=== PATIENT | female | born 1955 | race Caucasian/White ===

== ENCOUNTER 2019-06-30 00:25 | Inpatient (IN) | payer OTHER ==
[2019-06-30 03:57] VITALS: BMI 35.8
--- NOTE | 2019-06-30 04:25 | PDOC ---
History of Present Illness <Joon Rodriguez - Last Filed: 06/30/19 13:03> <Mago Guzman - Last Filed: 07/03/19 01:08> - General Chief Complaint: Vomiting/Diarrhea Stated Complaint: DIARRHEA Time Seen by Provider: 06/30/19 04:25 Past History <Joon Rodriguez - Last Filed: 06/30/19 13:03> - Past Medical History COPD: No - Suicide/Smoking/Psychosocial Hx Smoking History: Never smoked Hx Alcohol Use: No Drug/Substance Use Hx: No <Mago Guzmna - Last Filed: 07/03/19 01:08> - Past Medical History Allergies/Adverse Reactions: Allergies Allergy/AdvReac Type Severity Reaction Status Date / Time codeine Allergy Verified 06/14/19 10:49 Home Medications: Ambulatory Orders Albuterol Sulfate Inhaler - [Ventolin HFA Inhaler -] 2 inh PO Q4H PRN #1 inh Fluticasone Prop 0.05% Nasal [Flonase -] 1 spray NS DAILY #1 bot 06/14/19 Acetaminophen [Tylenol] 325 mg PO DAILY PRN 06/30/19 Albuterol Sulfate [Proair Respiclick] 90 mcg IH PRN 06/30/19 Salmeterol/Fluticasone [Advair 100Mcg/50Mcg -] 1 inh PO BID 06/30/19 *Physical Exam - Vital Signs Last Vital Signs Temp Pulse Resp BP Pulse Ox 98.3 F 94 H 18 111/71 96 06/30/19 08:44 06/30/19 12:34 06/30/19 12:34 06/30/19 12:34 06/30/19 12:34 <Joon Rodriguez - Last Filed: 06/30/19 13:03> - Vital Signs Last Vital Signs Temp Pulse Resp BP Pulse Ox 100.3 F H 138 H 20 143/83 93 L 06/30/19 01:40 06/30/19 01:40 06/30/19 01:40 06/30/19 01:40 06/30/19 01:40 <Mago Guzman - Last Filed: 07/03/19 01:08> ED Treatment Course - LABORATORY CBC & Chemistry Diagram: 06/30/19 05:21 06/30/19 05:21 - ADDITIONAL ORDERS Additional order review: Laboratory Results 06/30/19 06/30/19 06/30/19 11:35 05:21 05:21 Sodium 139 Potassium 4.3 Chloride 105 Carbon Dioxide 26 Anion Gap 8 BUN 26.4 H Creatinine 1.0 Est GFR (CKD-EPI)AfAm 68.95 Est GFR (CKD-EPI)NonAf 59.49 Random Glucose 186 H Calcium 9.1 Total Bilirubin 0.7 AST 18 ALT 25 Alkaline Phosphatase 138 H Troponin I < 0.02 Total Protein 7.0 Albumin 3.8 Lipase 163 Urine Color Dk yellow Urine Appearance Clear Urine pH 5.0 Ur Specific [place] 1.030 Urine Protein Negative Urine Glucose (UA) Negative Urine Ketones Trace H Urine Blood Negative Urine Nitrite Negative Urine Bilirubin Negative Urine Urobilinogen 0.2 Ur Leukocyte Esterase 3+ H Urine WBC (Auto) 13 Urine RBC (Auto) 3.6 Urine Casts (Auto) 0 U Epithel Cells (Auto) 7.4 Urine Bacteria (Auto) 36.9 06/30/19 05:21 RBC 5.92 H MCV 83.3 MCHC 33.1 RDW 15.6 MPV 7.1 L Neutrophils % 90.5 H Lymphocytes % 4.4 L Monocytes % 3.5 L Eosinophils % 0.8 Basophils % 0.8 - Medications Given in the ED: ED Medications Discontinued Medications Generic Name Dose Route Start Last Admin Trade Name Freq PRN Reason Stop Dose Admin Acetaminophen 1,000 mg 06/30/19 04:45 06/30/19 05:30 Ofirmev Injection - IVPB 06/30/19 04:46 1,000 mg ONCE ONE Administration Sodium Chloride 1,000 mls @ 1,000 mls/hr 06/30/19 04:45 06/30/19 05:30 Normal Saline - IV 06/30/19 05:44 1,000 mls/hr ASDIR STA Administration Famotidine/Sodium Chloride 20 mg in 50 mls @ 100 mls/hr 06/30/19 04:50 05:30 Pepcid 20 Mg Premixed Ivpb - IVPB 06/30/19 05:19 100 mls/hr ONCE ONE Administration Ceftriaxone Sodium 1,000 mg/ 50 mls @ 100 mls/hr 06/30/19 12:15 06/30/19 12: 36 Dextrose IVPB 06/30/19 12:44 100 mls/hr ONCE ONE Administration <Joon Rodriguez - Last Filed: 06/30/19 13:03> - LABORATORY CBC & Chemistry Diagram: 07/01/19 07:00 07/01/19 07:00 <Mago Guzman - Last Filed: 07/03/19 01:08> Medical Decision Making - Medical Decision Making HPI: 64yo F with history of bronchitis (on advair and albuterol) presenting with nausea, vomiting, and diarrhea. Patient states she started having these symptoms around 9pm tonight until shortly after she was in the emergency department. Diarrhea is described as water, light brown, and without blood. Has had recent antibiotic use. No unusual/new foods, sick contacts, or recent travel. Denies abdominal pain or urinary symptoms. Believes she has gastroenteritis. No history of abdominal surgeries. Had a colonoscopy about four years ago which was "normal." Reporting her mouth is dry. Denies fevers, but endorses chills. No chest pain or shortness of breath. PCP: Dr. Live GI: Dr. Man ROS: Constitutional: no fever, +chills HEENT: no throat pain, no dysphagia Cardiovascular: no chest pain, no palpitations Respiratory: no cough, no shortness of breath Gastrointestinal: no abdominal pain, +nausea, +vomiting, +diarrhea Genitourinary: no dysuria, no hematuria Musculoskeletal: no myalgia, no arthralgia Skin: no rash, no itching Neurologic: no headache, no weakness PE: General: Awake, alert, and fully oriented, in no acute distress Head: No signs of trauma Eyes: EOMI, sclera anicteric ENT: Dry mucus membranes Neck: Normal ROM, supple Lungs: Lungs clear, Normal breath sounds Cardio: Regular rhythm, S1 and S2 present Abdomen: Soft, nontender. No guarding, no rebound, no masses. No CVA tenderness Extremities: Normal range of motion, Distal pulses present SKIN: Warm, Dry, normal turgor Neurologic: Cranial nerves II through XII grossly intact. Normal speech ED Course/MDM: DDX including but not limited to gastroenteritis, gastritis, ACS, pancreatitis, intoxication Labs, EKG Fluids Tylenol Pepcid States that she is not currently nauseous. Will hold antiemetics. EKG: rate 132, QTc 456, sinus tachycardia 06/30/19 04:48 CMP Sodium 139 mmol/L (136-145) 06/30/19 05:21 Potassium 4.3 mmol/L (3.5-5.1) 06/30/19 05:21 Chloride 105 mmol/L (98-107) 06/30/19 05:21 Carbon Dioxide 26 mmol/L (21-32) 06/30/19 05:21 Anion Gap 8 MMOL/L (8-16) 06/30/19 05:21 BUN 26.4 mg/dL (7-18) H 06/30/19 05:21 Creatinine 1.0 mg/dL (0.55-1.3) 06/30/19 05:21 Est GFR (CKD-EPI)AfAm 68.95 06/30/19 05:21 Est GFR (CKD-EPI)NonAf 59.49 06/30/19 05:21 Random Glucose 186 mg/dL (74-106) H 06/30/19 05:21 Calcium 9.1 mg/dL (8.5-10.1) 06/30/19 05:21 Total Bilirubin 0.7 mg/dL (0.2-1) 06/30/19 05:21 AST 18 U/L (15-37) 06/30/19 05:21 ALT 25 U/L (13-61) 06/30/19 05:21 Alkaline Phosphatase 138 U/L (45-117) H 06/30/19 05:21 Troponin I < 0.02 ng/ml (0.00-0.05) 06/30/19 05:21 Total Protein 7.0 g/dl (6.4-8.2) 06/30/19 05:21 Albumin 3.8 g/dl (3.4-5.0) 06/30/19 05:21 Lipase 163 U/L (73-393) 06/30/19 05:21 Electrolytes unremarkable BUN elevated, Cr normal Tpn undetectable Normal lipase Pending UA 06/30/19 06:47 Patient signed out to Dr. Rodriguez and day team <Mago Guzman - Last Filed: 07/03/19 01:08> *DC/Admit/Observation/Transfer - Discharge Dispostion Decision to Admit order: Yes <Joon Rodriguez - Last Filed: 06/30/19 13:03> - Discharge Dispostion Decision to Admit order: Yes <Mago Guzman - Last Filed: 07/03/19 01:08> Diagnosis at time of Disposition: Nausea, vomiting and diarrhea - Discharge Dispostion Condition at time of disposition: Guarded
--- NOTE | 2019-06-30 04:34 | PDOC ---
Attending Attestation - Resident Resident Name: aMgo Guzman - ED Attending Attestation I have performed the following: I have examined & evaluated the patient, The case was reviewed & discussed with the resident, I agree w/resident's findings & plan - HPI HPI: 06/30/19 06:12 see resident hpi - Physicial Exam PE: 06/30/19 06:12 agree with resident exam - Medical Decision Making 06/30/19 06:12 64-year-old female with nausea vomiting and diarrhea status post antibiotic regimen for bronchitis Patient's abdomen is completely nontender Plan for IV fluids, analgesics and antacids Labs and urinalysis pending Case will be signed out to oncoming shift for reevaluation
[2019-06-30] MEDS ORDERED: SODIUM CHLORIDE 1,000 ML IV STA (04:45)
[2019-06-30] MEDS ORDERED: ACETAMINOPHEN 1000 MG/100 ML VIAL (NON FORMULARY) IVPB ONE (04:45)
[2019-06-30] MEDS ORDERED: FAMOTIDINE 20 MG/50 ML IVPB 20 MG/50 ML MG IVPB ONE (04:50)
[2019-06-30 06:21] LABS: ALBUMIN 3.8 g/dl (3.4-5.0); BILIRUBIN,TOTAL 0.7 mg/dL (0.2-1); BLOOD UREA NITROGEN 26.4 mg/dL (7-18); CALCIUM 9.1 mg/dL (8.5-10.1); POTASSIUM 4.3 mmol/L (3.5-5.1)
[2019-06-30 06:27] LABS: BASO % 0.8 % (0-2.0); EOS % 0.8 % (0-4.5); HEMATOCRIT 49.3 % (32.4-45.2); HEMOGLOBIN 16.3 GM/dL (10.7-15.3); LYMPH % 4.4 % (8-40); MCH 27.5 pg (25.7-33.7); MCHC 33.1 g/dl (32.0-36.0); MEAN CELL VOLUME 83.3 fl (80-96); MEAN PLT VOLUME 7.1 fl (7.5-11.1); MONO % 3.5 % (3.8-10.2); NEUT % 90.5 % (42.8-82.8); PLATELET COUNT 346 K/MM3 (134-434); RBC 5.92 M/mm3 (3.60-5.2); RDW 15.6 % (11.6-15.6); WHITE BLOOD COUNT 12.4 K/mm3 (4.0-10.0)
--- NOTE | 2019-06-30 08:20 | EKG ---
Test Reason : Blood Pressure : / mmHG Vent. Rate : 132 BPM Atrial Rate : 132 BPM P-R Int : 142 ms QRS Dur : 086 ms QT Int : 308 ms P-R-T Axes : 037 -59 041 degrees QTc Int : 456 ms SINUS TACHYCARDIA WITH FUSION COMPLEXES LOW VOLTAGE QRS LEFT ANTERIOR FASCICULAR BLOCK CANNOT RULE OUT ANTERIOR INFARCT , AGE UNDETERMINED ABNORMAL ECG NO PREVIOUS ECGS AVAILABLE Confirmed by ADELAIDA ROBINS, ENRRIQUE ([id number]) on 06/30/2019 8:19:57 AM Referred By: Confirmed By:ENRRIQUE OSN MD
[2019-06-30 11:43] LABS: EPI CELLS 7.4 /HPF (0-5/HPF); HYALINE CASTS 0 /lpf (0-8); URINE APPEARANCE CLEAR; URINE BACTERIA 36.9 /hpf (NEGATIVE); URINE BILIRUBIN NEGATIVE (NEGATIVE); URINE COLOR DK YELLOW; URINE GLUCOSE (UA) NEGATIVE (NEGATIVE); URINE KETONE TRACE (NEGATIVE); URINE LEUK ESTERASE 3+ (NEGATIVE); URINE NITRITE NEGATIVE (NEGATIVE); URINE PROTEIN NEGATIVE (NEGATIVE); URINE UROBILINOGEN 0.2 mg/dL (0.2-1.0); URINE WBC 13 /hpf (0-5)
[2019-06-30] MEDS ORDERED: CEFTRIAXONE 1,000 MG in DEXTROSE 5%-WATER - 50 ML IVPB ONE (12:15)
[2019-06-30] MEDS ORDERED: CEFTRIAXONE 1 GM/50 ML BAG ONE (12:24)
[2019-06-30 12:48] LABS: URINE RBC 3.6 /hpf (0-4)
--- NOTE | 2019-06-30 13:14 | PDOC ---
*Physical Exam - Vital Signs Last Vital Signs Temp Pulse Resp BP Pulse Ox 98.3 F 94 H 18 111/71 96 06/30/19 08:44 06/30/19 12:34 06/30/19 12:34 06/30/19 12:34 06/30/19 12:34 ED Treatment Course - LABORATORY CBC & Chemistry Diagram: 06/30/19 05:21 06/30/19 05:21 - ADDITIONAL ORDERS Additional order review: Laboratory Results 06/30/19 06/30/19 06/30/19 11:35 05:21 05:21 Sodium 139 Potassium 4.3 Chloride 105 Carbon Dioxide 26 Anion Gap 8 BUN 26.4 H Creatinine 1.0 Est GFR (CKD-EPI)AfAm 68.95 Est GFR (CKD-EPI)NonAf 59.49 Random Glucose 186 H Calcium 9.1 Total Bilirubin 0.7 AST 18 ALT 25 Alkaline Phosphatase 138 H Troponin I < 0.02 Total Protein 7.0 Albumin 3.8 Lipase 163 Urine Color Dk yellow Urine Appearance Clear Urine pH 5.0 Ur Specific [place] 1.030 Urine Protein Negative Urine Glucose (UA) Negative Urine Ketones Trace H Urine Blood Negative Urine Nitrite Negative Urine Bilirubin Negative Urine Urobilinogen 0.2 Ur Leukocyte Esterase 3+ H Urine WBC (Auto) 13 Urine RBC (Auto) 3.6 Urine Casts (Auto) 0 U Epithel Cells (Auto) 7.4 Urine Bacteria (Auto) 36.9 06/30/19 05:21 RBC 5.92 H MCV 83.3 MCHC 33.1 RDW 15.6 MPV 7.1 L Neutrophils % 90.5 H Lymphocytes % 4.4 L Monocytes % 3.5 L Eosinophils % 0.8 Basophils % 0.8 - Medications Given in the ED: ED Medications Discontinued Medications Generic Name Dose Route Start Last Admin Trade Name Freq PRN Reason Stop Dose Admin Acetaminophen 1,000 mg 06/30/19 04:45 06/30/19 05:30 Ofirmev Injection - IVPB 06/30/19 04:46 1,000 mg ONCE ONE Administration Sodium Chloride 1,000 mls @ 1,000 mls/hr 06/30/19 04:45 06/30/19 05:30 Normal Saline - IV 06/30/19 05:44 1,000 mls/hr ASDIR STA Administration Famotidine/Sodium Chloride 20 mg in 50 mls @ 100 mls/hr 06/30/19 04:50 05:30 Pepcid 20 Mg Premixed Ivpb - IVPB 06/30/19 05:19 100 mls/hr ONCE ONE Administration Ceftriaxone Sodium 1,000 mg/ 50 mls @ 100 mls/hr 06/30/19 12:15 06/30/19 12: 36 Dextrose IVPB 06/30/19 12:44 100 mls/hr ONCE ONE Administration Medical Decision Making - Medical Decision Making 06/30/19 13:13 64 F with N+V+D. Febrile in ED and tachycardic to 130s. Labs notable for leukocytosis, UA consistent with UTI. Pt reassessed - continues to feel weak at time of my eval. Will admit for IV hydration and abx. Pt admitted to hospitalist. *DC/Admit/Observation/Transfer Diagnosis at time of Disposition: Nausea, vomiting and diarrhea - Discharge Dispostion Condition at time of disposition: Improved Decision to Admit order: Yes Decision to Admit order Date/Time: Decision to Admit Order Category Date Time Status Decision to Admit to Hospital Routine Admission 06/30/19 13:03 Active - Referrals Referrals: Jonathon Live MD [Primary Care Provider] - - Patient Instructions Printed Discharge Instructions: DI for Vomiting -- Adult, Gastroenteritis Diet Additional Instructions: You came into the emergency department for nausea, vomiting, and diarrhea. We gave you fluids which helped you feel better. Labs did not indicate acute pathology. Follow-up with a primary care provider this week to discuss this ED visit and to further evaluate your symptoms. Your workup is not complete until you do so. Call today and make an appointment. Immediate medical attention is required if you develop: severe abdominal pain, high fevers, persistent nausea, vomiting, or any new or concerning symptoms. If you think you are having an emergency, call for emergency medical services or present to the emergency department right away. - Post Discharge Activity - Attestations Physician Attestion: 06/30/19 13:14 I, Dr. Joon Rodriguez MD, attest that this document has been prepared under my direction and personally reviewed by me in its entirety. I further attest, that it accurately reflects all work, treatment, procedures and medical decision -making performed by me.
--- NOTE | 2019-06-30 15:43 | HP ---
Admitting History and Physical - Admission Chief Complaint: weakness History of Present Illness: Patient is a 64 year old female with a significant past medical history of bronchitis (on advair and albuterol). She had a recent exacerbation of bronchitis two weeks ago and was treated with antibiotics and prednisone taper. She presents to [facility] with symptoms of nausea, vomiting, and diarrhea. Patient states she started having these symptoms yesterday evening and has had six episodes of diarrhea yesterday and two episodes of diarrhea today. Diarrhea is described as water, light brown, and without blood. No unusual/new foods, sick contacts, or recent travel. Denies abdominal pain or urinary symptoms. Believes she has gastroenteritis. No history of abdominal surgeries. Had a colonoscopy about four years ago which was "normal." Reporting her mouth is dry. Denies fevers, but endorses chills. No chest pain or shortness of breath. In the ED she was febrile with tachycardia and elevated wbc 12.4. Her blood and urine cultures have been collected and pending. She has been pancultured. History Source: Patient, Family Member, Medical Record Limitations to Obtaining History: No Limitations - Past Medical History Pulmonary: Yes: Asthma ...: No - Past Surgical History Past Surgical History: Yes: None - Smoking History Smoking history: Never smoked - Alcohol/Substance Use Hx Alcohol Use: No History of Substance Use: reports: None - Social History Usual Living Arrangement: Yes: With Child ADL: Independent History of Recent Travel: No Home Medications - Allergies Allergies/Adverse Reactions: Allergies Allergy/AdvReac Type Severity Reaction Status Date / Time No Known Allergies Allergy Verified 06/30/19 05:10 - Home Medications Home Medications: Ambulatory Orders Acetaminophen [Tylenol] 325 mg PO DAILY PRN 06/30/19 Albuterol Sulfate [Proair Respiclick] 90 mcg IH PRN 06/30/19 Salmeterol/Fluticasone [Advair 100Mcg/50Mcg -] 1 inh PO BID 06/30/19 Family Disease History - Family Disease History Family Disease History: Respiratory: Mother Review of Systems - Review of Systems Constitutional: reports: Chills, Lethargy, Loss of Appetite, Malaise, Weakness Eyes: reports: No Symptoms HENT: reports: No Symptoms Neck: reports: No Symptoms Cardiovascular: reports: No Symptoms Respiratory: reports: Cough Gastrointestinal: reports: No Symptoms Genitourinary: reports: No Symptoms Breasts: reports: No Symptoms Reported Musculoskeletal: reports: No Symptoms Neurological: reports: No Symptoms Endocrine: reports: No Symptoms Hematology/Lymphatic: reports: No Symptoms Psychiatric: reports: Other Physical Examination Vital Signs: Vital Signs Temperature 98.3 F 06/30/19 08:44 Pulse Rate 94 H 06/30/19 12:34 Respiratory Rate 18 06/30/19 12:34 Blood Pressure 111/71 06/30/19 12:34 O2 Sat by Pulse Oximetry (%) 96 06/30/19 12:34 Constitutional: Yes: Well Nourished, No Distress, Calm Eyes: Yes: WNL HENT: Yes: Atraumatic Neck: Yes: Supple Cardiovascular: Yes: Regular Rate and Rhythm Respiratory: Yes: Regular, CTA Bilaterally Gastrointestinal: Yes: Normal Bowel Sounds, Soft, Abdomen, Obese ...Rectal Exam: Yes: Deferred Renal/: Yes: WNL Breast(s): Yes: WNL Musculoskeletal: Yes: WNL Extremities: Yes: WNL Edema: No Integumentary: Yes: WNL Neurological: Yes: Alert, Oriented ...Motor Strength: WNL Psychiatric: Yes: Alert, Oriented Labs: CBC, BMP 06/30/19 05:21 06/30/19 05:21 Imaging - Results Chest X-ray: Report Reviewed Problem List - Problems (1) Sepsis Assessment/Plan: mets sepsis criteria on admission, elevated wbc, fever 100.3, tachycardia has been padilla cultured monitor blood and urine cultures monitor fever curve ID consulted will send out for c diff for frequent diarrhea Code(s): A41.9 - SEPSIS, UNSPECIFIED ORGANISM (2) Nausea, vomiting and diarrhea Assessment/Plan: c diff pending ivf Code(s): R11.2 - NAUSEA WITH VOMITING, UNSPECIFIED; R19.7 - DIARRHEA, UNSPECIFIED (3) Diarrhea Assessment/Plan: send for c diff Code(s): R19.7 - DIARRHEA, UNSPECIFIED (4) Prophylactic measure Assessment/Plan: fen NS at 100 monitor electrolytes regular diet full code Code(s): Z29.9 - ENCOUNTER FOR PROPHYLACTIC MEASURES, UNSPECIFIED Visit type - Emergency Visit Emergency Visit: Yes ED Registration Date: 06/30/19 Care time: The patient presented to the Emergency Department on the above date and was hospitalized for further evaluation of their emergent condition. - New Patient This patient is new to me today: Yes Date on this admission: 06/30/19 - Critical Care Critical Care patient: No
[2019-06-30] MEDS: SODIUM CHLORIDE 1,000 ML IV SCH (15:57)
[2019-06-30] MEDS ORDERED: ALBUTEROL SO4 2.5/IPRATROPIUM 0.5 INH SOL 3 ML VIAL.NEB. NEB PRN (20:55)
[2019-06-30] MEDS: FLUTICASONE/SALMETEROL 100 MCG/50 MCG DISKUS IH SCH (22:19)
[2019-07-01] MEDS: SODIUM CHLORIDE 1,000 ML IV SCH (01:42)
[2019-07-01 08:28] LABS: ALBUMIN 2.8 g/dl (3.4-5.0); BILIRUBIN,TOTAL 0.4 mg/dL (0.2-1); CREATININE 0.7 mg/dL (0.55-1.3); MAGNESIUM 2.3 mg/dL (1.8-2.4); POTASSIUM 3.7 mmol/L (3.5-5.1); TOT PROT 5.4 g/dl (6.4-8.2)
[2019-07-01 08:31] LABS: HEMATOCRIT 39.9 % (32.4-45.2); HEMOGLOBIN 13.6 GM/dL (10.7-15.3); MCH 28.4 pg (25.7-33.7); MCHC 34.1 g/dl (32.0-36.0); MEAN CELL VOLUME 83.3 fl (80-96); MEAN PLT VOLUME 7.1 fl (7.5-11.1); PLATELET COUNT 253 K/MM3 (134-434); RBC 4.79 M/mm3 (3.60-5.2); RDW 15.5 % (11.6-15.6); WHITE BLOOD COUNT 6.5 K/mm3 (4.0-10.0)
[2019-07-01] MEDS ORDERED: cefTRIAXone SODIUM 1 GM VIAL ONE (09:21)
[2019-07-01] MEDS ORDERED: DEXTROSE 5%-WATER - 50 ML IVPB ONE (09:21)
[2019-07-01] MEDS ORDERED: CEFTRIAXONE 1 GM in DEXTROSE 5%-WATER - 50 ML IVPB SCH (10:00)
--- NOTE | 2019-07-01 10:01 | CON.ID ---
Consult Consult Specialty:: infectious diseases Referred by:: Ligia Reason for Consultation:: Uti,dirrhoea,weakness - History of Present Illness Chief Complaint: dirrhoea,weakness History of Present Illness: 64 year old female with a significant past medical history of bronchitis antibiotics and prednisone taper. She presents to [facility] with symptoms of nausea , vomiting, and diarrhea. Patient states she started having these symptoms yesterday evening and has had six episodes of diarrhea yesterday and two episodes of diarrhea today. Diarrhea is described as water, light brown, and without blood. No unusual/new foods, sick contacts, or recent travel. Denies abdominal pain or urinary symptoms. Believes she has gastroenteritis. No history of abdominal surgeries. Had a colonoscopy about four years ago which was "normal." Reporting her mouth is dry. Denies fevers, but endorses chills. No chest pain or shortness of breath. patient mentions that today she did not have any dirrhoea,but on coming here she spiked a fever - History Source History Provided By: Patient Limitations to Obtaining History: No Limitations - Past Medical History Pulmonary: Yes: Asthma ...: No - Past Surgical History Past Surgical History: Yes: None - Alcohol/Substance Use Hx Alcohol Use: No History of Substance Use: reports: None - Smoking History Smoking history: Never smoked Have you smoked in the past 12 months: No Aproximately how many cigarettes per day: 0 - Social History ADL: Independent History of Recent Travel: No Home Medications - Allergies Allergies/Adverse Reactions: Allergies Allergy/AdvReac Type Severity Reaction Status Date / Time No Known Allergies Allergy Verified 06/30/19 05:10 - Home Medications Home Medications: Ambulatory Orders Acetaminophen [Tylenol] 325 mg PO DAILY PRN 06/30/19 Albuterol Sulfate [Proair Respiclick] 90 mcg IH PRN 06/30/19 Salmeterol/Fluticasone [Advair 100Mcg/50Mcg -] 1 inh PO BID 06/30/19 Family Disease History - Family Disease History Family Disease History: Respiratory: Mother Review of Systems - Review of Systems Constitutional: reports: Fever Eyes: reports: No Symptoms HENT: reports: No Symptoms Neck: reports: No Symptoms Cardiovascular: reports: No Symptoms Respiratory: reports: No Symptoms Gastrointestinal: reports: Abdominal Pain, Diarrhea, Nausea Genitourinary: reports: No Symptoms Musculoskeletal: reports: No Symptoms Integumentary: reports: No Symptoms Neurological: reports: No Symptoms Endocrine: reports: No Symptoms Hematology/Lymphatic: reports: No Symptoms Psychiatric: reports: No Symptoms Physical Exam Vital Signs: Vital Signs Temperature 98.2 F 07/01/19 06:00 Pulse Rate 81 07/01/19 06:00 Respiratory Rate 20 07/01/19 06:00 Blood Pressure 112/66 07/01/19 06:00 O2 Sat by Pulse Oximetry (%) 92 L 06/30/19 21:00 Constitutional: Yes: Well Nourished, No Distress, Calm Cardiovascular: Yes: Regular Rate and Rhythm Respiratory: Yes: Regular, CTA Bilaterally Gastrointestinal: Yes: Normal Bowel Sounds, Soft Musculoskeletal: Yes: WNL Extremities: Yes: WNL Neurological: Yes: Alert, Oriented Psychiatric: Yes: Alert, Oriented Labs: CBC, BMP 07/01/19 07:00 07/01/19 07:00 Imaging - Results Chest X-ray: Report Reviewed, Image Reviewed Assessment/Plan Problem List - Problems (1) Sepsis Code(s): A41.9 - SEPSIS, UNSPECIFIED ORGANISM (2) Nausea, vomiting and diarrhea Code(s): R11.2 - NAUSEA WITH VOMITING, UNSPECIFIED; R19.7 - DIARRHEA, UNSPECIFIED (3) Diarrhea Code(s): R19.7 - DIARRHEA, UNSPECIFIED fever leukocytosis plan will hold off on abx await for cdiff results hydration await for other cx rest as per the team
[2019-07-01] MEDS: FLUTICASONE/SALMETEROL 100 MCG/50 MCG DISKUS IH SCH (10:06)
[2019-07-01 11:54] VITALS: BP 128/71; PULSE 85; TEMP 98.5
--- NOTE | 2019-07-01 14:58 | DS ---
Physical Exam: SUBJECTIVE: Patient seen and examined OBJECTIVE: Vital Signs Period Temp Pulse Resp BP Sys/Trivedi Pulse Ox Last 24 Hr 98.2 F-98.6 F 81-96 18-24 112-128/57-76 91-96 PHYSICAL EXAM GENERAL: The patient is awake, alert, and fully oriented, in no acute distress. HEAD: Normal with no signs of trauma. EYES: PERRL, extraocular movements intact, sclera anicteric, conjunctiva clear. ENT: Ears normal, nares patent, oropharynx clear without exudates, moist mucous membranes. NECK: Trachea midline, full range of motion, supple. LUNGS: Breath sounds equal, clear to auscultation bilaterally, no wheezes, no crackles, no accessory muscle use. HEART: Regular rate and rhythm, S1, S2 without murmur, rub or gallop. ABDOMEN: Soft, nontender, nondistended, normoactive bowel sounds, no guarding, no rebound, no hepatosplenomegaly, no masses. EXTREMITIES: 2+ pulses, warm, well-perfused, no edema. NEUROLOGICAL: Cranial nerves II through XII grossly intact. Normal speech, gait not observed. PSYCH: Normal mood, normal affect. SKIN: Warm, dry, normal turgor, no rashes or lesions noted. LABS Laboratory Results - last 24 hr 06/30/19 07/01/19 07/01/19 19:00 07:00 07:00 WBC 6.5 RBC 4.79 Hgb 13.6 Hct 39.9 D MCV 83.3 MCH 28.4 MCHC 34.1 RDW 15.5 Plt Count 253 D MPV 7.1 L Sodium Potassium Chloride Carbon Dioxide Anion Gap BUN Creatinine Est GFR (CKD-EPI)AfAm Est GFR (CKD-EPI)NonAf Random Glucose Hemoglobin A1c % 7.1 H Lactic Acid 1.0 Calcium Magnesium Total Bilirubin AST ALT Alkaline Phosphatase Total Protein Albumin 07/01/19 07:00 WBC RBC Hgb Hct MCV MCH MCHC RDW Plt Count MPV Sodium 144 Potassium 3.7 Chloride 109 H Carbon Dioxide 25 Anion Gap 11 BUN 12.0 Creatinine 0.7 Est GFR (CKD-EPI)AfAm 106.12 Est GFR (CKD-EPI)NonAf 91.56 Random Glucose 120 H Hemoglobin A1c % Lactic Acid Calcium 8.0 L Magnesium 2.3 Total Bilirubin 0.4 AST 17 ALT 20 Alkaline Phosphatase 104 Total Protein 5.4 L Albumin 2.8 L HOSPITAL COURSE: Date of Admission:06/30/19 Date of Discharge: 07/01/19 Discharge Summary Reason For Visit: URINARY TRACT INFECTION Current Active Problems Diarrhea (Acute) Nausea, vomiting and diarrhea (Acute) Prophylactic measure (Acute) Sepsis (Acute) Condition: Improved - Instructions Diet, Activity, Other Instructions: Mrs Lewis: Your workup for infection was negative and we will be sending you home. You received two doses of IV antibiotics while you were in the hospital. Please follow up with your PCP within 3-5 days for post hospital evaluation. Thank you for allowing us to care for you. Ligia Bryan [facility] [phone] Referrals: Tam Arriaza MD [Staff Physician] - Disposition: HOME - Home Medications Comprehensive Discharge Medication List: Ambulatory Orders Albuterol Sulfate Inhaler - [Ventolin HFA Inhaler -] 2 inh PO Q4H PRN #1 inh Fluticasone Prop 0.05% Nasal [Flonase -] 1 spray NS DAILY #1 bot 06/14/19 Acetaminophen [Tylenol] 325 mg PO DAILY PRN 06/30/19 Albuterol Sulfate [Proair Respiclick] 90 mcg IH PRN 06/30/19 Salmeterol/Fluticasone [Advair 100Mcg/50Mcg -] 1 inh PO BID 06/30/19 Problem List - Problems (1) Sepsis Code(s): A41.9 - SEPSIS, UNSPECIFIED ORGANISM (2) Nausea, vomiting and diarrhea Code(s): R11.2 - NAUSEA WITH VOMITING, UNSPECIFIED; R19.7 - DIARRHEA, UNSPECIFIED (3) Diarrhea Code(s): R19.7 - DIARRHEA, UNSPECIFIED (4) Prophylactic measure Code(s): Z29.9 - ENCOUNTER FOR PROPHYLACTIC MEASURES, UNSPECIFIED
== END 2019-07-01 15:46 | disposition home or self-care (01) | DRG 463 ==
LOC: JER 00:25 → JERBED 13:03 → J5S 16:31
PROVIDERS: ADMIT Internal Medicine; ATTEND Nurse Practitioner Family
DX: N39.0 Urinary tract infection, site not specified (principal); E66.9 Obesity, unspecified; Z68.35 Body mass index [BMI] 35.0-35.9, adult; D72.829 Elevated white blood cell count, unspecified; R19.7 Diarrhea, unspecified; R11.2 Nausea with vomiting, unspecified; R00.0 Tachycardia, unspecified; R53.1 Weakness; R50.9 Fever, unspecified
CPT/HCPCS: 36415; 71046-TC-FY; 80053; 81003; 83036; 83605; 83690; 83735; 84484; 85025; 85027; 87040; 87086; 93005; 93010; 99285-25; J0131; J7030

== ENCOUNTER 2019-12-07 22:36 | Emergency (ER) | payer OTHER ==
[2019-12-07 22:56] VITALS: BP 146/83; PULSE 90; TEMP 98.6; BMI 35.4
[2019-12-07] MEDS ORDERED: ALBUTEROL SO4 2.5/IPRATROPIUM 0.5 INH SOL 3 ML VIAL.NEB. NEB ONE ×2 (23:04→23:06)
--- NOTE | 2019-12-07 23:10 | PDOC ---
History of Present Illness - General Chief Complaint: Respiratory Stated Complaint: COUGH, CONGESTION,DIZZY Time Seen by Provider: 12/07/19 22:43 - History of Present Illness Initial Comments: 64-year-old woman without significant past medical history presents to the ER, by ambulance with generalized weakness and nonproductive cough. Patient states that her cough began 5 days ago accompanied now by mild sore throat and weakness. Patient states that she has become fatigued, especially with exertion over the last few days. She states that she occasionally has audible wheezing in the last few days. She had been treated by her PMD last year with Advair and albuterol for intermittent bronchospasm. No history of asthma or smoking. Also ,over the last few days she has had one episode of vomiting ( bilious; occurred after coughing episode) and intermittent diarrhea (no blood or mucus); she states that she has had little appetite over the last few days but has been able to drink fluids without nausea/vomiting/diarrhea. No known recent sick contacts; no recent travel. Patient denies fever or chills. Allergies: Codeine No daily medications No history of smoking; no daily alcohol Past History - Past Medical History Allergies/Adverse Reactions: Allergies Allergy/AdvReac Type Severity Reaction Status Date / Time codeine Allergy Verified 12/07/19 22:40 Home Medications: Ambulatory Orders Albuterol Sulfate Inhaler - [Ventolin HFA Inhaler -] 2 puff IH Q6H #1 inhaler Cephalexin [Keflex Suspension] 500 mg PO TID #210 ml 12/07/19 Loratadine [Claritin] 10 mg PO PRN 12/07/19 Anemia: No Asthma: No Cancer: No Cardiac Disorders: No CVA: No COPD: No CHF: No Dementia: No Diabetes: No GI Disorders: No Disorders: No HTN: No Hypercholesterolemia: Yes Liver Disease: No Seizures: No Thyroid Disease: No - Surgical History Abdominal Surgery: No Appendectomy: No Cardiac Surgery: No Cholecystectomy: No Lung Surgery: No Neurologic Surgery: No Orthopedic Surgery: No - Psycho Social/Smoking Cessation Hx Smoking History: Never smoked Have you smoked in the past 12 months: No Number of Cigarettes Smoked Daily: 0 If you are a former smoker, when did you quit?: 1973 Information on smoking cessation initiated: No Hx Alcohol Use: No Drug/Substance Use Hx: No Substance Use Type: None Hx Substance Use Treatment: No Review of Systems - Review of Systems Able to Perform ROS?: Yes Comments:: 12 point review of systems is negative except for what is noted in the history of present illness *Physical Exam - Vital Signs Last Vital Signs Temp Pulse Resp BP Pulse Ox 98.6 F 90 17 146/83 97 12/07/19 22:52 12/07/19 22:52 12/07/19 22:52 12/07/19 22:52 12/07/19 22:52 - Physical Exam GENERAL: Adult female, alert and oriented x3, no acute distress; speaking in full sentences; pulse oximetry 97% on room air; temperature 98.6 F orally HEAD: Normal with no signs of trauma. EYES: PERRLA, EOMI, sclera anicteric, conjunctiva clear. ENT: Ears normal, nares patent, oropharynx mildly erythematous without exudates. Moist mucous membranes. NECK: Normal range of motion, supple without lymphadenopathy, JVD, or masses. LUNGS: Breath sounds equal, clear to auscultation bilaterally. Fair air exchange. No wheezes, and no crackles. HEART:Regular rate and rhythm, normal S1 and S2 without murmur, rub or gallop. ABDOMEN:.normal bowel sounds No guarding,tenderness or rebound.No masses No distention. EXTREMITIES: Normal range of motion, no edema. No clubbing or cyanosis. No erythema, or tenderness. NEUROLOGICAL: Cranial nerves II through XII grossly intact. Normal speech. No focal neurological deficits. MUSCULOSKELETAL: Back non-tender to palpation, no CVA tenderness SKIN: Warm, Dry, normal turgor, no rashes or lesions noted. Medical Decision Making - Medical Decision Making This 64-year-old woman without significant past history except for possible bronchospasm over the last year, treated effectively with Advair and albuterol inhaler (neither of which patient has used for several months), presents by ambulance with generalized weakness and several day history of nonproductive cough. On exam, patient is comfortable and speaking in full sentences without wheezing or significant shortness of breath. Lungs are clear but with some decrease in air exchange bilaterally; no other significant abnormalities on exam. Patient given DuoNeb nebulizer treatment: Reexamination reveals improvement in air exchange Although the patient does not have a known history of asthma/COPD, appears by history that she has had bronchospasm in the past. Patient states that she has heard audible wheezing over the last few days during the current episode of bronchitis. On exam now, she does not have wheezing but did have improvement in airflow on reexamination after nebulizer treatment. Therefore, will restart the patient on albuterol inhaler as needed, especially when she is hearing audible wheezing or as shortness of breath. Also, will start antibiotic treatment. Because she currently has GI symptoms (intermittent diarrhea/ vomiting) will not prescribe azithromycin. Keflex suspension (patient cannot swallow tabs) 500 mg 3 times a day for 1 week sent to her pharmacy. The patient should follow-up with her PMD () within the next 2 to 3 days. If she has shortness of breath, persistent wheezing, high fever, she should return to the ER. Discharge - Discharge Information Problems reviewed: Yes Clinical Impression/Diagnosis: Bronchitis Diarrhea Qualifiers: Diarrhea type: infectious Qualified Code(s): A09 - Infectious gastroenteritis and colitis, unspecified Condition: Stable Disposition: HOME - Additional Discharge Information Prescriptions: Albuterol Sulfate Inhaler - [Ventolin HFA Inhaler -] 2 puff IH Q6H #1 inhaler Cephalexin [Keflex Suspension] 500 mg PO TID #210 ml - Follow up/Referral Referrals: Jonathon Live MD [Primary Care Provider] - - Patient Discharge Instructions Patient Printed Discharge Instructions: DI for Acute Bronchitis Additional Instructions: Rest; albuterol inhaler up to 3 times a day as needed for wheezing Keflex suspension 2 teaspoons 3 times a day for 1 week Imodium, Pepto-Bismol or Kaopectate as needed for diarrhea Light diet and advance as tolerated Follow-up with within the next 2 to 3 days Return to ER if you have shortness of breath, high fever or persistent wheezing - Post Discharge Activity
[2019-12-07] MEDS ORDERED: CEFUROXIME AXETIL 500 MG TABLET PO ONE (23:15)
[2019-12-07] MEDS ORDERED: CEFUROXIME AXETIL 500 MG TABLET ONE (23:19)
== END 2019-12-07 23:28 | disposition home or self-care (01) ==
LOC: FER 22:36
PROC: 3E0F7GC Introduction of Other Therapeutic Substance into Respiratory Tract, Via Natural or Artificial Opening (ICD-10-PCS; principal; 2019-12-07)
DX: J40 Bronchitis, not specified as acute or chronic (principal); A09 Infectious gastroenteritis and colitis, unspecified; Z88.6 Allergy status to analgesic agent; Z87.891 Personal history of nicotine dependence; E78.00 Pure hypercholesterolemia, unspecified
CPT/HCPCS: 94640; 99284-25

== ENCOUNTER 2022-01-04 21:17 | Emergency (ER) | payer OTHER ==
[2022-01-04 21:55] VITALS: BMI 35.4
[2022-01-04 22:21] LABS: ALBUMIN 3.9 g/dl (3.4-5.0); ALK PHOS 130 U/L (45-117); ANION GAP 13 MMOL/L (8-16); CALCIUM 9.4 mg/dl (8.5-10); CHLORIDE 100 mmol/L (98-107); CO2 23 mmol/L (21-32); CREATININE 0.8 mg/dl (0.55-1.3); GLUCOSE,RANDOM 156 mg/dl (74-106); SGOT/AST 49 U/L (15-37); SGPT/ALT 26 U/L (13-61); SODIUM 136 mmol/L (136-145); TOT PROT 6.8 g/dl (6.4-8.2)
[2022-01-04 23:36] LABS: BASO % 0.8 % (0-2.0); EOS % 7.7 % (0-4.5); HEMATOCRIT 45.7 % (32.4-45.2); HEMOGLOBIN 15.6 GM/dL (10.7-15.3); LYMPH % 24.6 % (8-40); MCH 28.2 pg (25.7-33.7); MCHC 34.2 g/dl (32.0-36.0); MEAN CELL VOLUME 82.5 fl (80-96); MEAN PLT VOLUME 8.1 fl (7.5-11.1); MONO % 11.1 % (3.8-10.2); NEUT % 55.8 % (42.8-82.8); PLATELET COUNT 293 10^3/uL (134-434); RBC 5.54 M/mm3 (3.60-5.2); RDW 15.1 % (11.6-15.6); WHITE BLOOD COUNT 7.7 K/mm3 (4.0-10.0)
[2022-01-05 01:15] VITALS: BP 143/79; PULSE 118; TEMP 98.4
[2022-01-06 10:09] LABS: SARS-CoV-2 NAA Detected (Not Detected)
== END 2022-01-05 03:41 | disposition home or self-care (01) ==
LOC: FER 21:17
DX: U07.1 COVID-19 (principal)
CPT/HCPCS: 36415; 71045-TC-FY; 80053; 82550; 83880; 84484; 85025; 87426; 93005; 99285-25; C9803; U0003; U0005

== ENCOUNTER 2024-01-08 16:17 | Observation (INO) | payer MEDICARE, OTHER ==
[2024-01-08 17:11] LABS: HEMATOCRIT 53.1 % (32.4-45.2); HEMOGLOBIN 16.7 G/dL (10.7-15.3); MCH 26.3 pg (25.7-33.7); MCHC 31.4 g/dl (32.0-36.0); MEAN CELL VOLUME 83.6 fl (80-96); MEAN PLT VOLUME 7.9 fl (7.5-11.1); PLATELET COUNT 320.1 10^3/uL (134-434); RBC 6.35 10^6/uL (3.60-5.2); RDW 15.7 % (11.6-15.6); WHITE BLOOD COUNT 10.3 10^3/uL (4.0-10.8)
[2024-01-08 17:28] LABS: PLATELET ESTIMATE ADEQUATE
[2024-01-08 17:30] LABS: ALBUMIN 4.4 g/dl (3.4-5.0); BILIRUBIN,TOTAL 0.6 mg/dl (0.2-1); CALCIUM 9.6 mg/dl (8.5-10.1); CREATININE 0.8 mg/dl (0.6-1.3); POTASSIUM 4.4 mmol/L (3.5-5.1); TOT PROT 6.8 g/dl (6.4-8.2)
[2024-01-08] MEDS: ASPIRIN 81 MG CHEWABLE TABLETS PO ONE (18:45)
[2024-01-08 18:59] LABS: N-TERMINAL BNP 186.7 pg/ml (5-125)
[2024-01-08 21:13] VITALS: BMI 35.9
[2024-01-08 22:51] LABS: EPITHELIAL CELLS 0-5 /hpf
[2024-01-08] MEDS: INSULIN ASPART SLIDING SCALE (NOVOLOG) 1 VIAL SQ SCH (22:51)
[2024-01-08] MEDS: ROSUVASTATIN CA 20 MG TABLET PO SCH (22:51)
[2024-01-08] MEDS: SODIUM CHLORIDE NASAL SPRAY 44 ML BOTTLE NS PRN (23:27)
[2024-01-09] MEDS: ACETAMINOPHEN 325 MG TABLET (FP) PO PRN (02:08)
[2024-01-09] MEDS: glipiZIDE 5 MG TABLET (FP) PO SCH ×2 (06:05→16:52)
[2024-01-09 08:09] LABS: HEMATOCRIT 48.2 % (32.4-45.2); HEMOGLOBIN 15.9 G/dL (10.7-15.3); MCH 27.4 pg (25.7-33.7); MEAN CELL VOLUME 82.9 fl (80-96); MEAN PLT VOLUME 7.8 fl (7.5-11.1); PLATELET COUNT 296.2 10^3/uL (134-434); RBC 5.82 10^6/uL (3.60-5.2); RDW 15.2 % (11.6-15.6); WHITE BLOOD COUNT 10.8 10^3/uL (4.0-10.8)
[2024-01-09 08:24] LABS: CALCIUM 9.6 mg/dl (8.5-10.1); CREATININE 0.8 mg/dl (0.6-1.3); POTASSIUM 4.1 mmol/L (3.5-5.1)
[2024-01-09] MEDS: SUMAtriptan SUCCINATE 50 MG TABLET PO ONE (21:58)
[2024-01-09] MEDS ORDERED: SUMAtriptan SUCCINATE 50 MG TABLET PO ONE (22:00)
[2024-01-10] MEDS: ALPRAZolam 1 MG TABLET PO ONE (00:18)
[2024-01-10 09:37] LABS: BILIRUBIN,TOTAL 0.5 mg/dl (0.2-1); CALCIUM 9.1 mg/dl (8.5-10.1); CREATININE 0.7 mg/dl (0.6-1.3); POTASSIUM 4.4 mmol/L (3.5-5.1)
[2024-01-10 10:26] LABS: BASO % 0.8 % (0-2.0); EOS % 4.1 % (0-4.5); HEMATOCRIT 44.8 % (32.4-45.2); HEMOGLOBIN 14.6 GM/dL (10.7-15.3); LYMPH % 23.8 % (8-40); MCH 27.1 pg (25.7-33.7); MCHC 32.7 g/dl (32.0-36.0); MEAN CELL VOLUME 82.8 fl (80-96); MEAN PLT VOLUME 7.4 fl (7.5-11.1); MONO % 7.1 % (3.8-10.2); NEUT % 64.2 % (42.8-82.8); PLATELET COUNT 325 10^3/uL (134-434); RBC 5.41 M/mm3 (3.60-5.2); RDW 15.2 % (11.6-15.6); WHITE BLOOD COUNT 9.2 K/mm3 (4.0-10.0)
[2024-01-10] MEDS: ACETAMINOPHEN 1000 MG/100 ML BAG IVPB PRN (11:10)
[2024-01-10] MEDS ORDERED: morphine SULFATE 4 MG/ML VIAL ONE (16:45)
[2024-01-10] MEDS ORDERED: TICAGRELOR 60 MG TABLET PO ONE (16:50)
[2024-01-10] MEDS: ASPIRIN 81 MG CHEWABLE TABLETS PO ONE (18:12)
[2024-01-10] MEDS: morphine CARPU-JECT 4 MG/1 ML DISP.SYRIN IVPUSH ONE (18:20)
[2024-01-10] MEDS: TICAGRELOR 90 MG TABLET PO ONE (18:40)
[2024-01-10 19:03] VITALS: TEMP 98.9
[2024-01-10 19:05] VITALS: RESP 20
[2024-01-10 19:13] VITALS: BP 104/71; PULSE 94
[2024-01-10] MEDS ORDERED: TICAGRELOR 60 MG TABLET PO SCH (22:00)
== END 2024-01-10 17:00 | disposition short-term general hospital (02) ==
LOC: FER 16:17 → FM/S 18:40
PROVIDERS: ADMIT Internal Medicine
PROC: 3E033NZ Introduction of Analgesics, Hypnotics, Sedatives into Peripheral Vein, Percutaneous Approach (ICD-10-PCS; principal; 2024-01-08)
DX: D75.1 Secondary polycythemia (principal); E11.9 Type 2 diabetes mellitus without complications; E78.5 Hyperlipidemia, unspecified; R51.9 Headache, unspecified; R00.2 Palpitations; R42 Dizziness and giddiness; E66.9 Obesity, unspecified; R07.9 Chest pain, unspecified; M54.9 Dorsalgia, unspecified; E04.9 Nontoxic goiter, unspecified; R77.8 Other specified abnormalities of plasma proteins; M81.0 Age-related osteoporosis without current pathological fracture; J45.909 Unspecified asthma, uncomplicated; Z87.891 Personal history of nicotine dependence; Z88.5 Allergy status to narcotic agent
CPT/HCPCS: 0241U-QW; 36415; 70450-TC; 71045-TC-FY; 71250-TC; 80048; 80053; 80061; 81003; 81015; 82668; 82962; 83036; 83880; 84439; 84443; 84484; 85025; 85027; 85045; 86376; 87086; 93005; 93306-TC; 96374; 96375; 99285-25; G0378; J0131